=== PATIENT | male | born 1950 ===

== ENCOUNTER 2021-05-17 15:44 | Emergency (ER) | payer MEDICARE ==
[2021-05-17] MEDS ORDERED: LIDOCAINE JELLY (2%) 5 ML TOPICAL TP ONE (15:58)
--- NOTE | 2021-05-17 16:02 | Emergency Department Report ---
ED Male HPI - General Stated complaint: FLOR CAME OUT Time Seen by Provider: 05/17/21 15:58 - History of Present Illness Initial comments: Patient presents by ambulance with a malfunctioning catheter. It is partially out. It got tangled up in his clothing and was partially pulled. He is having significant penile pain. Patient called an ambulance to come here. He has no other complaint. Has no fevers or chills per there is no back pain. Is no abdominal pain. Pain is only in the penis. His catheter is been in for quite some time. It was placed because he could not urinate. He has no fevers or chills. There is no other trauma noted. Pain is constant and aching. It does not radiate or migrate. - Related Data Previous Rx's Medication Instructions Recorded Last Taken Type amLODIPine 10 mg PO DAILY #30 tab 05/13/20 Unknown Rx diphenhydrAMINE [Benadryl CAP] 50 mg PO QHS PRN #10 capsule 05/13/20 Unknown Rx Allergies Allergy/AdvReac Type Severity Reaction Status Date / Time No Known Allergies Allergy Unverified 05/13/20 13:59 ED Review of Systems ROS: Stated complaint: FLOR CAME OUT Other details as noted in HPI Comment: All other systems reviewed and negative Constitutional: denies: fever Eyes: denies: eye pain ENT: denies: throat pain Respiratory: denies: cough Cardiovascular: denies: chest pain Endocrine: denies: unexplained weight loss Gastrointestinal: denies: abdominal pain Genitourinary: as per HPI Musculoskeletal: denies: back pain Skin: denies: rash Neurological: denies: headache Hematological/Lymphatic: denies: easy bruising ED Past Medical Hx - Past Medical History Additional medical history: Insomia - Social History Smoking Status: Never Smoker - Medications Home Medications: Home Medications Medication Instructions Recorded Confirmed Last Taken Type amLODIPine 10 mg PO DAILY #30 tab 05/13/20 Unknown Rx diphenhydrAMINE [Benadryl CAP] 50 mg PO QHS PRN #10 capsule 05/13/20 Unknown Rx ED Physical Exam - General Limitations: Language Barrier General appearance: alert, in distress (Moderate discomfort) - Head Head exam: Present: atraumatic, normocephalic, normal inspection - Eye Eye exam: Present: normal appearance, EOMI. Absent: scleral icterus - ENT ENT exam: Present: normal exam, normal orophraynx - Neck Neck exam: Present: normal inspection. Absent: meningismus - Respiratory Respiratory exam: Present: normal lung sounds bilaterally. Absent: respiratory distress - Cardiovascular Cardiovascular Exam: Present: regular rate, normal rhythm - GI/Abdominal GI/Abdominal exam: Present: soft. Absent: distended, tenderness - exam: Present: normal inspection (Flor catheter in place. Balloon cannot be deflated) - Extremities Exam Extremities exam: Absent: tenderness, pedal edema - Back Exam Back exam: Absent: CVA tenderness (R), CVA tenderness (L) - Neurological Exam Neurological exam: Present: alert, oriented X3. Absent: motor sensory deficit - Psychiatric Psychiatric exam: Present: normal affect, normal mood - Skin Skin exam: Present: warm, dry ED Course Vital Signs 05/17/21 16:14 Temperature 98 F Pulse Rate 90 Respiratory 16 Rate Blood Pressure 149/88 [Right] O2 Sat by Pulse 100 Oximetry - Reevaluation(s) Reevaluation #2: 05/17/21 16:01 Balloon could not be deflated. The catheter tip was cut to allow the balloon to drain. Once it drained, the catheter was easily removed. This will be replaced and the patient can be discharged. Reevaluation #3: 05/17/21 17:18 Catheter was placed by myself as the nurse could not place it. Patient was subsequently discharged. - Penile Procedure Consent Obtained: verbal consent Time Out Performed: Yes Indication: other (Flor catheter placement) Procedural Sedation: No Local Anesthesia Used: Local Injection (Topical lidocaine) Patient Tolerated Procedure: well, no complications Additional Comments: Lfor catheter was placed using gentle pressure with the patient in a recumbent position. This placed easily. Patient tolerated procedure well. Urine was noted in the catheter. Balloon was then inflated with 10 mL of saline. ED Medical Decision Making - Medical Decision Making Patient presented by ambulance secondary to malfunctioning Flor catheter. This was removed. It had partially been removed by the patient. He did have hematuria noted grossly. This is likely secondary to trauma. A repeat Flor catheter was placed. Patient was socially discharged with referral to his urologist. He is not anticoagulated. There is no abdominal pain or flank pain. He does not appear to have urinary retention at this time. There was no significant trauma to the urinary meatus. I do not believe he would require further intervention. Critical Care Time: No Critical care attestation.: If time is entered above; I have spent that time in minutes in the direct care of this critically ill patient, excluding procedure time. ED Disposition Clinical Impression: Flor catheter problem Disposition: HOME / SELF CARE / HOMELESS Is pt being admited?: No Does the pt Need Aspirin: No Condition: Stable Additional Instructions: Continue routine Flor care. Drink plenty of water. Return for problems. Follow-up with your regular doctor.
[2021-05-17] MEDS ORDERED: LIDOCAINE VISCOUS 2% 15 ML ORAL LIQD ONE (16:56)
[2021-05-17 23:16] VITALS: BP 89/49
== END 2021-05-17 20:08 | disposition home or self-care (01) ==
LOC: ED 15:44
DX: Z46.6 Encounter for fitting and adjustment of urinary device (principal)
CPT/HCPCS: 51702; 99283